=== PATIENT | female | born 1990 | race American Indian/Alaskan Native ===

== ENCOUNTER 2017-04-24 22:19 | Emergency (ER) | payer MEDICAID, OTHER ==
[2017-04-24 22:20] VITALS: BMI 38.5
--- NOTE | 2017-04-24 23:29 | ED PDOC ---
Arrival/HPI <Wiliam Hubbard - Last Filed: 04/24/17 23:48> - General Historian: Patient - History of Present Illness Time/Duration: Other (2 weeks) Context: Home <Dirk Fletcher - Last Filed: 04/26/17 15:33> - General Time Seen by Provider: 04/24/17 22:36 - History of Present Illness Narrative History of Present Illness (Text): 04/24/17 23:30 This 26 yo female presents to this ED c/o vaginal discharge x 2 weeks. Patient stated she discharge has a bad odor. She is requesting STD test. Denies other complains. (Dirk Fletcher) Past Medical History - Provider Review Nursing Documentation Reviewed: Yes - Infectious Disease Hx of Infectious Diseases: None - Cardiac Hx Cardiac Disorders: No - Pulmonary Hx Respiratory Disorders: Yes - Neurological Hx Neurological Disorder: No - HEENT Hx HEENT Disorder: No - Renal Hx Renal Disorder: No - Endocrine/Metabolic Hx Endocrine Disorders: No - Hematological/Oncological Hx Blood Disorders: No - Integumentary Hx Dermatological Disorder: No - Musculoskeletal/Rheumatological Hx Musculoskeletal Disorders: No - Gastrointestinal Hx Gastrointestinal Disorders: No - Genitourinary/Gynecological Hx Genitourinary Disorders: No - Psychiatric Hx Psychophysiologic Disorder: No Hx Substance Use: No - Surgical History Hx Pulmonary Surgery: Yes (for right pneumothorax) - Anesthesia Hx Anesthesia: Yes Hx Anesthesia Reactions: No Hx Malignant Hyperthermia: No <Dirk Fletcher - Last Filed: 04/26/17 15:33> Family/Social History - Physician Review Nursing Documentation Reviewed: Yes Family/Social History: Other Smoking Status: Former Smoker Hx Alcohol Use: Yes Hx Substance Use: No <Dirk Fletcher - Last Filed: 04/26/17 15:33> Allergies/Home Meds <Wiliam Hubbard - Last Filed: 04/24/17 23:48> <Dirk Fletcher - Last Filed: 04/26/17 15:33> Allergies/Adverse Reactions: Allergies latex Allergy (Verified 04/24/17 23:44) RASH Review of Systems - Review of Systems Constitutional: Normal. absent: Fatigue, Weight Change, Fevers Eyes: Normal ENT: Normal Respiratory: Normal. absent: SOB, Cough Cardiovascular: Normal. absent: Chest Pain Gastrointestinal: Normal. absent: Abdominal Pain, Diarrhea, Nausea Genitourinary Female: Vaginal Discharge Musculoskeletal: Normal. absent: Back Pain Skin: Normal Neurological: Normal. absent: Headache, Dizziness, Focal Weakness Endocrine: Normal Hemo/Lymphatic: Normal Psychiatric: Normal <ChanceMirelahill Hudson - Last Filed: 04/26/17 15:33> Physical Exam Temperature: Afebrile Blood Pressure: Normal Pulse: Regular Respiratory Rate: Normal Appearance: Positive for: Well-Appearing, Non-Toxic, Comfortable Pain Distress: None Mental Status: Positive for: Alert and Oriented X 3 - Systems Exam Head: Present: Atraumatic, Normocephalic Pupils: Present: PERRL Extroacular Muscles: Present: EOMI Conjunctiva: Present: Normal Mouth: Present: Moist Mucous Membranes Neck: Present: Normal Range of Motion Respiratory/Chest: Present: Clear to Auscultation, Good Air Exchange. No: Respiratory Distress, Accessory Muscle Use Cardiovascular: Present: Regular Rate and Rhythm, Normal S1, S2. No: Murmurs Abdomen: Present: Normal Bowel Sounds. 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 No: Vaginal Bleeding, Vaginal Lesions, Adenexal Tenderness, Adenexal Mass Back: Present: Normal Inspection Upper Extremity: Present: Normal Inspection. No: Cyanosis, Edema Lower Extremity: Present: Normal Inspection. No: Edema Neurological: Present: GCS=15, CN II-XII Intact, Speech Normal Skin: Present: Warm, Dry, Normal Color. No: Rashes Psychiatric: Present: Alert, Oriented x 3, Normal Insight, Normal Concentration <FletcherDirk bazzi Becca - Last Filed: 04/26/17 15:33> Vital Signs Temp Pulse Resp BP Pulse Ox 04/24/17 23:39 98.6 F 88 18 112/89 100 Medical Decision Making <Wiliam Hubbard - Last Filed: 04/24/17 23:48> Re-evaluation Time: 01:45 Reassessment Condition: Re-examined, Improved <ChanceMirelahill Hudson - Last Filed: 04/26/17 15:33> ED Course and Treatment: 04/25/17 01:45 On reevaluation the patient feels better and is in no acute distress. I have discussed the results and plan with the patient, who expresses understanding. Patient given the opportunity to ask question, all questions were answered and there is agreement with the plan to discharge the patient home with prescription for Doxycycline, and Keflex. Patient is stable for discharge. Patient was instructed to follow up with physician/clinic in 1-2 days or return if symptoms persist/worsen or new concerning symptoms arise. (Dirk Fletcher) - Lab Interpretations Microbiology Results: Microbiology Results 04/25/17 01:00 Urine,Clean Catch Urine Culture - Final No Growth (<1,000 CFU/ML) Lab Results: Lab Results 04/25/17 00:01: Urine HCG, Qual Negative 04/25/17 00:01: Urine Color Yellow, Urine Appearance Clear, Urine pH 6.0, Ur Specific [place] >= 1.030, Urine Protein Trace H, Urine Glucose (UA) Negative, Urine Ketones Trace H, Urine Blood Negative, Urine Nitrate Negative, Urine Bilirubin Negative, Urine Urobilinogen 0.2, Ur Leukocyte Esterase Trace H, Urine RBC 0 - 2, Urine WBC 1 - 3, Ur Epithelial Cells 1 - 3, Urine Bacteria Few - Medication Orders Current Medication Orders: Discontinued Medications Ceftriaxone Sodium (Rocephin) 250 mg IM STAT STA PRN Reason: Protocol Stop: 04/25/17 00:06 Last Admin: 04/25/17 00:50 Dose: 250 mg IM Administration Charges Document 04/25/17 00:50 CARO (Rec: 04/25/17 01:05 CARO [facility] [id number]) Injection Site MAR Injection Site Left Gluteus Lino Charges for Administration # of IM Administrations 1 Doxycycline Hyclate (Doryx) 100 mg PO STAT STA PRN Reason: Protocol Stop: 04/25/17 00:09 Last Admin: 04/25/17 00:50 Dose: 100 mg Metronidazole (Flagyl) 2,000 mg PO STAT STA PRN Reason: Protocol Stop: 04/25/17 00:07 Last Admin: 04/25/17 00:50 Dose: 2,000 mg - PA / 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 <iWliam Hubbard - Last Filed: 04/24/17 23:48> Disposition/Present on Arrival <Wiliam Hubbard - Last Filed: 04/24/17 23:48> - Present on Arrival Any Indicators Present on Arrival: No History of DVT/PE: No History of Uncontrolled Diabetes: No Urinary Catheter: No History Surgical Site Infection Following: None - Disposition Have Diagnosis and Disposition been Completed?: Yes Disposition Time: 01:47 Patient Plan: Discharge <Dirk Flecther - Last Filed: 04/26/17 15:33> - Disposition Diagnosis: Cervicitis Disposition: HOME/ ROUTINE Condition: GOOD Discharge Instructions (ExitCare): Cervicitis (ED) Additional Instructions: Call private ANSWERING SERVICE AGENT doctor for follow up visit in 1-2 days. take medication as instructed with food. Review lab result with your doctor in 3-5 days. return to emergency if symptoms. Prescriptions: Cephalexin [cephalexin] 500 mg PO BID #10 cap Doxycycline Monohydrate 100 mg PO BID #20 tablet Referrals: [facility] [Outside] - [facility] [Outside] - Follow up with primary Forms: WORK NOTE
[2017-04-24 23:41] VITALS: BP 112/89; PULSE 88; RESP 18; TEMP 98.6; O2SAT 100
[2017-04-25] MEDS ORDERED: cefTRIAXone (Rocephin) 250 mg Inj IM STA (00:05)
[2017-04-25 00:53] LABS: URINE APPEARANCE CLEAR (CLEAR); URINE BILIRUBIN NEGATIVE (NEGATIVE); URINE BLOOD NEGATIVE (NEGATIVE); URINE COLOR YELLOW (YELLOW); URINE GLUCOSE (UA) NEGATIVE (NEGATIVE); URINE KETONE TRACE mg/dL (NEGATIVE); URINE LEUKOCYTE ESTERASE TRACE Leu/uL (NEGATIVE); URINE PROTEIN TRACE mg/dL (<30 mg/dL); URINE UROBILINOGEN 0.2 E.U./dL (<1 E.U./dL)
[2017-04-25 01:11] LABS: URINE BACTERIA FEW (NEG); URINE RBC 0 - 2 /hpf (0-2)
== END 2017-04-25 01:55 | disposition home or self-care (01) ==
LOC: ED 22:19
DX: N72 Inflammatory disease of cervix uteri (principal)
CPT/HCPCS: 81001; 84703; 87086; 87491; 87591; 96372; 99283; J0696

== ENCOUNTER 2017-11-03 12:52 | Emergency (ER) | payer MEDICAID ==
[2017-11-03 13:09] VITALS: BP 123/75; PULSE 95; TEMP 97.6; BMI 19.8
--- NOTE | 2017-11-03 14:16 | ED PDOC ---
Arrival/HPI - General Chief Complaint: Suture/Staple Removal Time Seen by Provider: 11/03/17 13:17 Historian: Patient - History of Present Illness Narrative History of Present Illness (Text): 11/03/17 14:17 26-year-old female presents today for suture removal to the bilateral earlobes. Patient states 3 weeks ago she had elective plastic surgery in [place]. Patient states she had her earlobes attached. Patient denies pain. Denies fevers or chills. Patient states she was supposed to have the sutures out in 5 days but did not follow up until today. No other complaints Time/Duration: > week (3 weeks ago) Past Medical History - Provider Review Nursing Documentation Reviewed: Yes - Travel History Have you recently traveled outside [place] w/in the past 3 mons?: No - Infectious Disease Hx of Infectious Diseases: None - Tetanus Immunization Tetanus Immunization: Unknown - Cardiac Hx Cardiac Disorders: No - Pulmonary Hx Respiratory Disorders: Yes - Neurological Hx Neurological Disorder: No - HEENT Hx HEENT Disorder: No - Renal Hx Renal Disorder: No - Endocrine/Metabolic Hx Endocrine Disorders: No - Hematological/Oncological Hx Blood Disorders: No - Integumentary Hx Dermatological Disorder: No - Musculoskeletal/Rheumatological Hx Musculoskeletal Disorders: No - Gastrointestinal Hx Gastrointestinal Disorders: No - Genitourinary/Gynecological Hx Genitourinary Disorders: No - Psychiatric Hx Psychophysiologic Disorder: No Hx Substance Use: No - Surgical History Hx Pulmonary Surgery: Yes (for right pneumothorax) - Anesthesia Hx Anesthesia: Yes Hx Anesthesia Reactions: No Hx Malignant Hyperthermia: No Family/Social History - Physician Review Nursing Documentation Reviewed: Yes Family/Social History: Unknown Family HX Smoking Status: Former Smoker Hx Alcohol Use: Yes Hx Substance Use: No Allergies/Home Meds Allergies/Adverse Reactions: Allergies latex Allergy (Verified 11/03/17 13:11) RASH Home Medications: Home Meds Medication Instructions Recorded Confirmed No Known Home Med 11/03/17 11/03/17 Review of Systems - Review of Systems Constitutional: absent: Fatigue, Fevers Respiratory: absent: SOB, Cough Cardiovascular: absent: Chest Pain, Palpitations Gastrointestinal: absent: Abdominal Pain, Vomiting Skin: absent: Pruritis Neurological: absent: Headache, Dizziness Physical Exam Vital Signs Reviewed: Yes Vital Signs Temp Pulse Resp BP Pulse Ox 11/03/17 13:09 97.6 F 95 H 18 123/75 100 Temperature: Afebrile Blood Pressure: Normal Pulse: Regular Respiratory Rate: Normal Appearance: Positive for: Well-Appearing, Non-Toxic, Comfortable Pain Distress: None Mental Status: Positive for: Alert and Oriented X 3 - Systems Exam Head: Present: Laceration (healing lacerations to b/l ear lobes with [address] in each ear lobe; no erythema; no edema, no tenderness. ) Mouth: Present: Moist Mucous Membranes Respiratory/Chest: Present: Clear to Auscultation Cardiovascular: Present: Regular Rate and Rhythm Neurological: Present: GCS=15 Skin: Present: Warm, Dry Psychiatric: Present: Alert, Oriented x 3 Medical Decision Making ED Course and Treatment: 11/03/17 14:18 Patient is nontoxic well-appearing in no distress. Vital signs are stable. suture removal; 5 sutures removed from each ear lobe; Total of 10 sutures removed. Wound healing well without signs of infection I advised the patient to keep the wound clean and dry apply bacitracin twice daily and return if symptoms worsen persist or if new symptoms develop Patient verbalizes understanding of discharge instructions and need for immediate followup. all aspects of this case were discussed the attending of record. Impression: Suture removal Follow up with the primary care physician within the next 2 days return if symptoms worsen,persist or if new symptoms develop. return immediately if signs of infection develop; high fevers, increasing pain, redness, swelling or purulent discharge develop. Disposition/Present on Arrival - Present on Arrival Any Indicators Present on Arrival: No History of DVT/PE: No History of Uncontrolled Diabetes: No Urinary Catheter: No History of Decub. Ulcer: No History Surgical Site Infection Following: None - Disposition Have Diagnosis and Disposition been Completed?: Yes Diagnosis: Visit for suture removal Disposition: HOME/ ROUTINE Disposition Time: 14:12 Patient Plan: Discharge Condition: GOOD Discharge Instructions (ExitCare): Stitches Removal Additional Instructions: Follow up with the primary care physician within the next 2 days return if symptoms worsen,persist or if new symptoms develop. return immediately if signs of infection develop; high fevers, increasing pain, redness, swelling or purulent discharge develop. Referrals: Amanda Kurtz MD [Staff Provider] - Follow up with primary Valentin Barney MD [Staff Provider] - Follow up with primary Forms: [email or web address] Connect (Turkish), WORK NOTE
[2017-11-03 14:19] VITALS: RESP 19; O2SAT 98
[2017-11-03] MEDS ORDERED: Dextrose 50% SYRINGE Inj (50 ml) ONE (16:37)
== END 2017-11-03 14:19 | disposition home or self-care (01) ==
LOC: ED 12:52
DX: Z48.02 Encounter for removal of sutures (principal)